=== PATIENT | male | born 1995 | race African-American/Black ===

== ENCOUNTER 2019-02-24 08:14 | Emergency (ER) | payer OTHER ==
--- NOTE | 2019-02-24 09:41 | RADIOLOGY REPORT (SQ) ---
EXAM DESCRIPTION: CHEST SINGLE VIEW COMPLETED DATE/TIME: 02/24/2019 9:32 am REASON FOR STUDY: coughing up blood COMPARISON: None. EXAM PARAMETERS: NUMBER OF VIEWS: One view. TECHNIQUE: Single frontal radiographic view of the chest acquired. RADIATION DOSE: NA LIMITATIONS: None. FINDINGS: LUNGS AND PLEURA: No opacities, masses or pneumothorax. No pleural effusion. MEDIASTINUM AND HILAR STRUCTURES: No masses. Contour normal. HEART AND VASCULAR STRUCTURES: Heart normal in size. Normal vasculature. BONES: No acute findings. HARDWARE: None in the chest. OTHER: No other significant finding. IMPRESSION: NO ACUTE RADIOGRAPHIC FINDING IN THE CHEST. TECHNICAL DOCUMENTATION: JOB ID: [id number] [employer]- All Rights Reserved Reading location - IP/workstation name: [email or web address]
[2019-02-24 09:52] VITALS: BP 116/71
--- NOTE | 2019-02-24 12:24 | ER Document Report ---
Entered by SARMAD TOLENTINO SCRIBE 02/24/19 0942 Acting as scribe for:TAMMY RODRIGUEZ MD ED ENT - General Chief Complaint: Nose Bleed Stated Complaint: NOSE BLEEDS, COUGH Time Seen by Provider: 02/24/19 09:29 Mode of Arrival: Ambulatory Information source: Patient Notes: Patient is a 24-year-old male that presents to the emergency department today with complaints of a nosebleed. Patient states about a month ago his girlfriend had URI symptoms which he then contracted. Patient states he had these URI symptoms for about two weeks in all. Patient states as soon as the URI symptoms subsided, he began having nose bleeds. Patient states during the first week of the nosebleeds he was having them about every other day but for the last week they have been daily, sometimes multiple times a day. Patient states the bleeding is always out of his left nostril. Patient states every once in a while he coughs now and brings up mucus with blood streaks. Patient is not actively bleeding. TRAVEL OUTSIDE OF THE [place] IN LAST 30 DAYS: No - Related Data Allergies/Adverse Reactions: No Known Allergies Allergy (Verified 02/24/19 08:34) Past Medical History - General Information source: Patient - Social History Smoking Status: Current Some Day Smoker - states he has been quit for x1 week and wishes to remain this way Cigarette use (# per day): Yes Chew tobacco use (# tins/day): No Drug Abuse: Marijuana Occupation: Moving company Lives with: Spouse/Significant other Family History: Reviewed & Not Pertinent Patient has suicidal ideation: No Patient has homicidal ideation: No Past Surgical History: Reports: Hx Herniorrhaphy - As an infant, Other - Jaw surgery. Review of Systems - Review of Systems Constitutional: No symptoms reported EENT: See HPI, Other - Epistaxis Cardiovascular: No symptoms reported Respiratory: See HPI, Cough Gastrointestinal: No symptoms reported Genitourinary: No symptoms reported Male Genitourinary: No symptoms reported Musculoskeletal: No symptoms reported Skin: No symptoms reported Hematologic/Lymphatic: No symptoms reported Neurological/Psychological: No symptoms reported -: Yes All other systems reviewed and negative Physical Exam - Vital signs Vitals: Temp Pulse Resp BP Pulse Ox 98.6 F 78 14 131/71 H 98 02/24/19 08:21 02/24/19 08:21 02/24/19 08:21 02/24/19 08:21 02/24/19 08:21 - Notes Notes: Physical Exam: General: Alert, appears well. HEENT: Normocephalic. Atraumatic. PERRLA. Extraocular movements intact. Oropharynx clear. Nasal mucosa is erythematous and boggy bilaterally. No active bleeding. Clear nasal discharge. Neck: Supple. Respiratory: No respiratory distress. Abdominal: Normal Inspection. No distension. Extremities: Moves all four extremities. Neurological: Normal cognition. AAOx4. Normal speech. Psychological: Normal affect. Normal Mood. Skin: Warm. Dry. Normal color. Course - Vital Signs Vital signs: Temp Pulse Resp BP Pulse Ox 97.9 F 79 14 116/71 100 02/24/19 09:52 02/24/19 09:52 02/24/19 08:21 02/24/19 09:52 02/24/19 09:52 - Diagnostic Test Radiology reviewed: Image reviewed, Reports reviewed - Chest x-ray is unremarkable. Discharge - Discharge Clinical Impression: Anterior epistaxis Condition: Stable Disposition: HOME, SELF-CARE Additional Instructions: Nosebleed Instructions There is a significant chance of re-bleeding following a nosebleed. Proper care makes this less likely. Do not touch the nose for 24 hours. Do not blow the nose forcefully for one week. After 24 hours, gently apply Vaseline ointment to both nostrils with the tip of a finger, three times a day, for one week. It's normal to have a bloody mucous discharge for a few days. If active bleeding recurs, blow all the blood from the nose, then sit quietly and pinch the nose as firmly as possible for 10 minutes. If this does not stop the bleeding, return for further care. If packing was left in the nose and it starts to come out of the nostril, either tuck it back in or cut it off. Don't pull it out. Return for recheck and removal of the packing when instructed. Persons with frequent nosebleeds should avoid aspirin (unless prescribed for another reason). Humidity in the bedroom, and petroleum jelly applied to the nostrils at night may help. Put bacitracin, Neosporin, or Vaseline ointment into each nostril 3 times a day and at bedtime for the next several days. Then try to put it in each nostril at bedtime through the fall and winter months. If your nose begins to bleed, spray Afrin nose spray into your nose and pinch the nose. Try to place an Afrin soaked cotton ball up into the nostril and leave it for about 30 to 45 minutes. If this does not stop the nosebleed, then return to the emergency room. RETURN TO THE EMERGENCY ROOM IF ANY NEW OR WORSENING SYMPTOMS. Forms: Return to Work Scribe Attestation: 02/24/19 09:44 I personally performed the services described in the documentation, reviewed and edited the documentation which was dictated to the scribe in my presence, and it accurately records my words and actions. I personally performed the services described in the documentation, reviewed and edited the documentation which was dictated to the scribe in my presence, and it accurately records my words and actions.
== END 2019-02-24 09:49 | disposition home or self-care (01) ==
LOC: ER 08:14
DX: R04.0 Epistaxis (principal); R04.2 Hemoptysis; F12.10 Cannabis abuse, uncomplicated
CPT/HCPCS: 71045; 99283